=== PATIENT | male | born 1975 ===

== ENCOUNTER 2018-09-09 13:48 | Emergency (ER) | payer OTHER ==
[~2018-09-09] VITALS: Ht 172.7 cm; Wt 78.5 kg
[~2018-09-09 13:48] MED LIST: ADVIL200 MG PO; ANAPROX; ASACOL 400MG; CATAFLAN PO; CIPRO500 MG PO; DICYCLOMINE HCL20 MG PO; GASTRINEX CAPSU1 CAP PO; LOSARTAN POTASS50 MG PO; NEXIUM40 MG/PACK PO; PNEU16DI2
== END 2018-09-09 22:21 | disposition home or self-care (01) ==
LOC: ER 13:48
DX: K29.60 Other gastritis without bleeding (principal)

== ENCOUNTER 2018-12-10 09:27 | Outpatient (CLI) | payer OTHER | END 2018-12-10 09:37 | disposition home or self-care (01) | LOC: LAB 09:27 | DX: K40.91 Unilateral inguinal hernia, without obstruction or gangrene, recurrent (principal); Z01.812 Encounter for preprocedural laboratory examination ==

== ENCOUNTER 2018-12-12 09:41 | Outpatient (CLI) | payer OTHER ==
[2018-12-18] MEDS ORDERED: ADVIL100 MG PO (14:16)
[2018-12-18] MEDS ORDERED: PANADOL EXTRA500 MG PO (14:16)
== END 2018-12-12 09:51 | disposition home or self-care (01) ==
LOC: RAD 09:41
DX: K40.91 Unilateral inguinal hernia, without obstruction or gangrene, recurrent (principal); I10 Essential (primary) hypertension; R07.89 Other chest pain

== ENCOUNTER 2018-12-25 06:05 | Day surgery (SDC) | payer OTHER ==
[~2018-12-25 06:05] MED LIST changes: +ADVIL100 MG PO; +PANADOL EXTRA500 MG PO
== END 2018-12-25 15:10 | disposition home or self-care (01) ==
LOC: CIR.AMB 06:05
DX: K40.91 Unilateral inguinal hernia, without obstruction or gangrene, recurrent (principal)

== ENCOUNTER 2019-05-27 13:13 | Outpatient (CLI) | payer OTHER | END 2019-05-27 13:22 | disposition home or self-care (01) | LOC: RAD 13:13 | DX: R09.81 Nasal congestion (principal); R06.02 Shortness of breath; J30.89 Other allergic rhinitis; J34.3 Hypertrophy of nasal turbinates ==

== ENCOUNTER 2019-09-11 08:47 | Outpatient (CLI) | payer OTHER | END 2019-09-11 09:07 | disposition home or self-care (01) | LOC: LAB 08:47 | DX: G89.28 Other chronic postprocedural pain (principal); I10 Essential (primary) hypertension; Z13.89 Encounter for screening for other disorder; Z11.3 Encounter for screening for infections with a predominantly sexual mode of transmission; Z12.5 Encounter for screening for malignant neoplasm of prostate; Z13.220 Encounter for screening for lipoid disorders ==

== ENCOUNTER → 2020-03-08 | Emergency (ER) | payer OTHER ==
[~2020-03-08] VITALS: Ht 177.8 cm; Wt 81.6 kg
== END | disposition home or self-care (01) ==
LOC: ER 20:51
DX: R10.13 Epigastric pain (principal)

== ENCOUNTER → 2021-01-19 10:09 | Outpatient (CLI) | payer OTHER ==
[~2021-01-19 10:09] MED LIST changes: +DICLOFENAC POTA50 MG PO; +NEURONTIN300 MG PO
== END | disposition home or self-care (01) ==
LOC: LAB 10:09
PROVIDERS: ATTEND Physical Medicine & Rehabilitation
DX: R05 Cough (principal); R50.9 Fever, unspecified; R06.02 Shortness of breath; Z03.818 Encounter for observation for suspected exposure to other biological agents ruled out

== ENCOUNTER 2021-08-18 11:14 | Outpatient (CLI) | payer OTHER | END 2021-08-18 11:15 | disposition home or self-care (01) | LOC: LAB 11:14 | PROVIDERS: ATTEND General Practice | DX: N39.0 Urinary tract infection, site not specified (principal); R30.0 Dysuria; Z11.3 Encounter for screening for infections with a predominantly sexual mode of transmission ==

== ENCOUNTER 2023-02-08 08:17 | Outpatient (CLI) | payer OTHER | END 2023-02-08 08:27 | disposition home or self-care (01) | LOC: RAD 08:17 | PROVIDERS: ATTEND General Practice | DX: R53.81 Other malaise (principal); R05.9 Cough, unspecified; R68.83 Chills (without fever) ==

== ENCOUNTER 2024-04-02 09:40 | Outpatient (CLI) | payer OTHER | END 2024-04-02 09:54 | disposition home or self-care (01) | LOC: MRI 09:40 | PROVIDERS: ATTEND General Practice | DX: M25.512 Pain in left shoulder (principal); R52 Pain, unspecified | CPT/HCPCS: 73218 ==

== ENCOUNTER 2024-04-10 09:23 | Outpatient (CLI) | payer OTHER | END 2024-04-10 09:35 | disposition home or self-care (01) | LOC: SONOGRAMA 09:23 | PROVIDERS: ATTEND General Practice | DX: M25.522 Pain in left elbow (principal); R52 Pain, unspecified ==

== ENCOUNTER 2024-04-17 08:07 | Outpatient (CLI) | payer OTHER | END 2024-04-17 08:16 | disposition home or self-care (01) | LOC: MRI 08:07 | PROVIDERS: ATTEND General Practice | DX: M54.2 Cervicalgia (principal); R52 Pain, unspecified | CPT/HCPCS: 72141 ==